=== PATIENT | male | born 1970 | race Native Hawaiian/Other Pacific Islander ===

== ENCOUNTER → 2022-12-12 | Outpatient (CLI) | payer BC ==
--- NOTE | 2022-12-12 08:21 | US ---
EXAMINATION TYPE: US liver DATE OF EXAM: 12/12/2022 COMPARISON: 09/25/2015 CLINICAL INDICATION: Male, 51 years old with history of R10.11; Pt states RUQ pain, especially post p randial TECHNIQUE: Multiple sonographic images of the right upper quadrant are obtained. FINDINGS: EXAM MEASUREMENTS: Liver Length: 16.8 cm Gallbladder Wall: 0.4 cm CBD: 0.4 cm Right Kidney: 11.3 x 5.4 x 5.9 cm Pancreas: Obscured by bowel gas Liver: Increased echogenicity. No far field attenuation. Gallbladder: Multiple gallstones at neck that don't move with LLD, sludge, mildly thickened wall. No pericholecystic fluid. Evidence for sonographic Elias's sign: Yes CBD: wnl Right Kidney: wnl IMPRESSION: 1. Moderate hepatic steatosis. Correlate with LFTs, lipid profile, and patient risk factors. 2. Mild gallbladder wall thickening with cholelithiasis and sludge. Sonographic Elias's sign is also reported positive. Unable to exclude early acute cholecystitis. If further imaging assessment is pipo ired, HIDA scan can be considered. 3. No biliary ductal dilatation.
== END | disposition home or self-care (01) ==
LOC: RADUSWWP 06:35
PROVIDERS: ATTEND Internal Medicine
DX: K76.0 Fatty (change of) liver, not elsewhere classified (principal); K80.20 Calculus of gallbladder without cholecystitis without obstruction
CPT/HCPCS: 76705

== ENCOUNTER 2023-03-15 11:46 | Inpatient (IN) | payer BC ==
--- NOTE | 2023-03-15 14:35 | ED ---
Abdominal Pain HPI - General Chief Complaint: Abdominal Pain Stated Complaint: Gallbladder Source: patient Mode of arrival: ambulatory Limitations: no limitations - History of Present Illness Initial Comments: A 52-year-old male with past medical history significant for gallbladder stones since the ED with chief complaint of abdominal pain. Patient states last night but experienced right upper abdominal pain. Pain is sharp and constant nature. Associated nausea and diarrhea. No changes in bowel or bladder habits. Denies chest pain or shortness of breath. No other complaints. - Related Data Previous Rx's Medication Instructions Recorded Famotidine [Pepcid] 20 mg PO BID #30 tablet 09/13/22 Allergies Allergy/AdvReac Type Severity Reaction Status Date / Time No Known Allergies Allergy Verified 03/15/23 11:57 Review of Systems ROS Statement: Those systems with pertinent positive or pertinent negative responses have been documented in the HPI. ROS Other: All systems not noted in ROS Statement are negative. Past Medical History Past Medical History: GERD/Reflux History of Any Multi-Drug Resistant Organisms: None Reported Past Surgical History: No Surgical Hx Reported Past Psychological History: No Psychological Hx Reported Smoking Status: Never smoker Past Alcohol Use History: Occasional Past Drug Use History: Marijuana General Exam Limitations: no limitations General appearance: alert, in no apparent distress Eye exam: Present: normal appearance Neck exam: Present: normal inspection Respiratory exam: Present: normal lung sounds bilaterally Cardiovascular Exam: Present: regular rate, normal rhythm GI/Abdominal exam: Present: soft (Tenderness to palpation in the right upper quadrant with positive Elias sign.) Extremities exam: Present: normal inspection Neurological exam: Present: alert, oriented X3 Skin exam: Present: warm, dry Course Vital Signs 03/15/23 11:55 Temperature 98.6 F Pulse Rate 60 Respiratory 18 Rate Blood Pressure 151/77 O2 Sat by Pulse 97 Oximetry Medical Decision Making - Medical Decision Making Was pt. sent in by a medical professional or institution (, PA, DIELECTRIC TESTING MACHINE OPERATOR, urgent care, hospital, or penitentiary...) When possible be specific @ -No Did you speak to anyone other than the patient for history (EMS, parent, family, police, friend...)? What history was obtained from this source @ -No Did you review nursing and triage notes (agree or disagree)? Why? @ -I reviewed and agree with nursing and triage notes Were old charts reviewed (outside hosp., previous admission, EMS record, old EKG, old radiological studies, urgent care reports/EKG's, penitentiary records)? Report findings @ -No old charts were reviewed Differential Diagnosis (chest pain, altered mental status, abdominal pain women, abdominal pain men, vaginal bleeding, weakness, fever, dyspnea, syncope, headache, dizziness, GI bleed, back pain, seizure, CVA, palpatations, mental health, musculoskeletal)? @ -Differential Abdominal Pain Men: Appendicitis, cholecystitis, diverticulosis, ischemic bowel, pancreatitis, hepatitis, UTI, gastroenteritis, AAA, incarcerated hernia, bowel obstruction, constipation, inflammatory bowel, hepatitis, peptic ulcer disease, splenic infarction, perforated viscus, testicular torsion, this is not meant to be an all-inclusive list EKG interpreted by me (3pts min.). @ -Pending X-rays interpreted by me (1pt min.). @ -None done CT interpreted by me (1pt min.). @ -None done U/S interpreted by me (1pt. min.). @ -Ultrasound interpreted by me shows cholelithiasis with gallbladder wall thickening. What testing was considered but not performed or refused? (CT, X-rays, U/S, labs)? Why? @ -None What meds were considered but not given or refused? Why? @ -None Did you discuss the management of the patient with other professionals (professionals i.e. , PA, DIELECTRIC TESTING MACHINE OPERATOR, lab, RT, psych nurse, sexual assault social worker, merchandise coordinator, teacher, public records officer, case managers)? Give summary @ -Discussed with Dr. Thacker of surgery accepted admission patient who advised sending the patient on Zosyn keeping him nothing by mouth. Was smoking cessation discussed for >3mins.? @ -No Was critical care preformed (if so, how long)? @ -No Were there social determinants of health that impacted care today? How? (Homelessness, low income, unemployed, alcoholism, drug addiction, transpor tation, low edu. Level, literacy, decrease access to med. care, longterm, rehab)? @ -No Was there de-escalation of care discussed even if they declined (Discuss DNR or withdrawal of care, Hospice)? DNR status @ -No What co-morbidities impacted this encounter? (DM, HTN, Smoking, COPD, CAD, Cancer, CVA, ARF, Chemo, Hep., AIDS, mental health diagnosis, sleep apnea, morbid obesity)? @ -None Was patient admitted / discharged? Hospital course, mention meds given and route, prescriptions, significant lab abnormalities, going to OR and other pertinent info. @ -Admission. Laboratory studies significant for an elevated white blood cell count at 16.2. Ultrasound shows cholelithiasis with gallbladder wall thickening consistent with cholecystitis. Patient will be admitted for continued pain control and kept nothing by mouth. Patient will be started on Zosyn. Undiagnosed new problem with uncertain prognosis? @ -No Drug Therapy requiring intensive monitoring for toxicity (Heparin, Nitro, Insulin, Cardizem)? @ -No Were any procedures done? @ -No Diagnosis/symptom? @ -Cholecystitis Acute, or Chronic, or Acute on Chronic? @ -Acute Uncomplicated (without systemic symptoms) or Complicated (systemic symptoms)? @ -Uncomplicated Side effects of treatment? @ -No Exacerbation, Progression, or Severe Exacerbation? @ -No Poses a threat to life or bodily function? How? (Chest pain, USA, CT, pneumonia, PE, COPD, DKA, ARF, appy, cholecystitis, CVA, Diverticulitis, Homicidal, Suicidal, threat to staff... and all critical care pts) @ -No - Lab Data Result diagrams: 03/15/23 15:45 03/15/23 15:45 Lab Results 03/15/23 03/15/23 Range/Units 15:45 15:45 WBC 16.2 H (3.8-10.6) k/uL RBC 5.42 (4.30-5.90) m/uL Hgb 16.5 (13.0-17.5) gm/dL Hct 47.4 (39.0-53.0) % MCV 87.3 (80.0-100.0) fL MCH 30.4 (25.0-35.0) pg MCHC 34.8 (31.0-37.0) g/dL RDW 13.8 (11.5-15.5) % Plt Count 218 (150-450) k/uL MPV 6.6 Neutrophils % 84 % Lymphocytes % 12 % Monocytes % 4 % Eosinophils % 0 % Basophils % 0 % Neutrophils # 13.5 H (1.3-7.7) k/uL Lymphocytes # 1.9 (1.0-4.8) k/uL Monocytes # 0.7 (0-1.0) k/uL Eosinophils # 0.1 (0-0.7) k/uL Basophils # 0.0 (0-0.2) k/uL Sodium 137 (137-145) mmol/L Potassium 4.3 (3.5-5.1) mmol/L Chloride 99 (98-107) mmol/L Carbon Dioxide 28 (22-30) mmol/L Anion Gap 10 mmol/L BUN 11 (9-20) mg/dL Creatinine 0.64 L (0.66-1.25) mg/dL Est GFR (CKD-EPI)AfAm >90 (>60 ml/min/1.73 sqM) Est GFR (CKD-EPI)NonAf >90 (>60 ml/min/1.73 sqM) Glucose 115 H (74-99) mg/dL Calcium 10.0 (8.4-10.2) mg/dL Total Bilirubin 1.6 H (0.2-1.3) mg/dL AST 32 (17-59) U/L ALT 42 (4-49) U/L Alkaline Phosphatase 84 (38-126) U/L Total Protein 8.2 (6.3-8.2) g/dL Albumin 4.9 (3.5-5.0) g/dL Amylase 52 (30-110) U/L Lipase 32 (23-300) U/L Disposition Clinical Impression: Cholecystitis Disposition: ADMITTED IP TO THIS [facility] Referrals: Hany Lindsay MD [Primary Care Provider] - 1-2 days Time of Disposition: 18:30
[2023-03-15 16:04] LABS: Basophils % (A) 0 %; Eosinophils # (A) 0.1 k/uL (0-0.7); Eosinophils % (A) 0 %; HCT 47.4 % (39.0-53.0); HGB 16.5 gm/dL (13.0-17.5); Lymphocytes # (A) 1.9 k/uL (1.0-4.8); Lymphocytes % (A) 12 %; MCH 30.4 pg (25.0-35.0); MCHC 34.8 g/dL (31.0-37.0); MCV 87.3 fL (80.0-100.0); Mean Platelet Volume 6.6; Monocytes # (A) 0.7 k/uL (0-1.0); Monocytes % (A) 4 %; Neutrophils # (A) 13.5 k/uL (1.3-7.7); Neutrophils % (A) 84 %; Platelet Count 218 k/uL (150-450); RBC 5.42 m/uL (4.30-5.90); RDW 13.8 % (11.5-15.5); WBC 16.2 k/uL (3.8-10.6)
[2023-03-15 16:08] LABS: ALT 42 U/L (4-49); AST 32 U/L (17-59); African American GFR (CKD) >90 (>60 ml/min/1.73 sqM); Albumin 4.9 g/dL (3.5-5.0); Alkaline Phosphatase 84 U/L (38-126); Amylase 52 U/L (30-110); Anion Gap 10 mmol/L; Blood Urea Nitrogen 11 mg/dL (9-20); Carbon Dioxide 28 mmol/L (22-30); Chloride 99 mmol/L (98-107); Glucose 115 mg/dL (74-99); Lipase 32 U/L (23-300); Non-African American GFR(CKD) >90 (>60 ml/min/1.73 sqM); Potassium 4.3 mmol/L (3.5-5.1); Sodium 137 mmol/L (137-145); Total Bilirubin 1.6 mg/dL (0.2-1.3); Total Protein 8.2 g/dL (6.3-8.2)
--- NOTE | 2023-03-15 16:53 | US ---
EXAMINATION TYPE: US gallbladder DATE OF EXAM: 03/15/2023 COMPARISON: 12/12/22 CLINICAL INDICATION: Male, 52 years old with history of r/o cholecystitis; RUQ pain. Pt diagnosed wit h gallstones in November 2022. Pt states multiple "GB attacks" since then. Increased WBC TECHNIQUE: Multiple sonographic images of the right upper quadrant are obtained. FINDINGS: EXAM MEASUREMENTS: Liver Length: 17.8 cm Gallbladder Wall: 0.36 cm CBD: 0.34cm Right Kidney: 13.2 x 7.5 x 7.0 cm BI LEAD NOTES: Pancreas: wnl Liver: Heterogeneous. Hypoechoic area seen adjacent to GB measuring 2.4 x 3.6cm, most likely fatty s paring Gallbladder: Multiple gallstones visualized. Some appeared attached to fundus wall and immobile. The wall appeared to be thickened. Evidence for sonographic Elias's sign: No CBD: wnl Right Kidney: wnl IMPRESSION: 1 Clinical correlation recommended for acute cholecystitis. Cholelithiasis is present. 2. Hepatomegaly
[2023-03-15] MEDS ORDERED: MORPHINE SULFATE 4 MG/ML SYRINGE IVP STA (18:32)
[2023-03-15] MEDS ORDERED: ACETAMINOPHEN TAB 325 MG TAB PO PRN (18:41)
[2023-03-15] MEDS ORDERED: NALOXONE 0.4 MG/ML 1 ML VIAL IV PRN (18:41)
[2023-03-15] MEDS ORDERED: HYDROmorphone 0.5 MG/0.5 ML SYRINGE IVP PRN (18:41)
[2023-03-15] MEDS: ONDANSETRON 4 MG/2 ML VIAL IVP PRN (20:13)
[2023-03-15] MEDS: SODIUM CHLORIDE 0.9% 1,000 ML IV SCH (20:14)
[2023-03-15] MEDS: PIPERACILLIN-TAZOBACTAM 3.375 GM in SODIUM CHLORIDE 0.9% 100 ML IVPB SCH (20:14)
[2023-03-15] MEDS: HYDROmorphone 1 MG/ML 1 ML SYRINGE IVP PRN (22:20)
[2023-03-16] MEDS: PIPERACILLIN-TAZOBACTAM 3.375 GM in SODIUM CHLORIDE 0.9% 100 ML IVPB SCH ×3 (03:10→22:01)
[2023-03-16] MEDS: HYDROmorphone 1 MG/ML 1 ML SYRINGE IVP PRN ×3 (03:17→15:47)
[2023-03-16] MEDS ORDERED: HEPARIN SODIUM,PORCINE/PF 5,000 UNIT/0.5 ML SYRINGE SQ PRN (10:06)
[2023-03-16] MEDS ORDERED: INDOCYANINE GREEN 25 MG VIAL IV STA (10:07)
[2023-03-16 11:29] LABS: Basophils % (A) 0 %; Eosinophils # (A) 0.1 k/uL (0-0.7); Eosinophils % (A) 1 %; HCT 47.8 % (39.0-53.0); HGB 15.6 gm/dL (13.0-17.5); Lymphocytes # (A) 2.1 k/uL (1.0-4.8); Lymphocytes % (A) 22 %; MCH 29.4 pg (25.0-35.0); MCHC 32.7 g/dL (31.0-37.0); MCV 89.9 fL (80.0-100.0); Mean Platelet Volume 6.6; Monocytes # (A) 0.5 k/uL (0-1.0); Monocytes % (A) 6 %; Neutrophils # (A) 6.8 k/uL (1.3-7.7); Neutrophils % (A) 70 %; Platelet Count 231 k/uL (150-450); RBC 5.31 m/uL (4.30-5.90); RDW 14.1 % (11.5-15.5); WBC 9.7 k/uL (3.8-10.6)
--- NOTE | 2023-03-16 11:34 | P.CONS ---
History of Present Illness - Reason for Consult Consult date: 03/16/23 - History of Present Illness Patient is a 52-year-old male with history of GERD, and back pain presenting with worsening right upper quadrant pain. He claims that he has been having intermittent right upper quadrant pain, and was scheduled to see surgery in clinic for possibly cholecystectomy. However, 2 days ago his pain became more persistent, and he was in [place] at that time. He did go to another emergency room, was not able to wait due to pain. He then decided to come home but continued to experience extreme pain, and then finally came back to our emergency department. He denies any fevers, chills, chest pain, shortness of breath, urinary or bowel complaints. He denies any smoking, drinks alcohol occasionally, denies any illicit drug use. In the ED, temperature was 98.6, pulse 60, respiratory rate 18, blood pressure 151/77, saturating at 97% on room air. Laboratory analysis showed WBC of 16.2, sodium 137, creatinine 0.64. Total bilirubin 1.6, LFTs within normal limits. Lipase was 32. Gallbladder ultrasound showed cholelithiasis with findings consistent with suspected acute cholecystitis. Also showed hepatomegaly. Patient admitted to general surgery. Sound physician has been consulted for medical management. Pertinent positives and negatives as discussed in HPI, a complete review of systems was performed and all other systems are negative. Patient seen and examined at bedside. Vital signs reviewed General: nontoxic, no distress, appears at stated age Derm: warm, dry Head: atraumatic, normocephalic, symmetric Eyes: EOMI, no lid lag, anicteric sclera, pupils equal round reactive to light ENT: Nose and ears atraumatic Neck: No thyromegaly, supple Mouth: no lip lesion, mucus membranes moist Cardiovascular: S1S2 reg, no murmur, no edema Lungs: clear to auscultation bilateral, no rhonchi, no rales, no wheeze, no accessory muscle use Abdominal: soft, tender to palpation in right upper quadrant, no guarding, no appreciable organomegaly Ext: no gross muscle atrophy, muscle strength muscle strength 5 out of 5 in all 4 extremities, no contractures Neuro: CN II-XII grossly intact Psych: Alert, oriented, appropriate affect Assessment/Plan: Acute cholecystitis Leukocytosis, resolved GERD Hepatomegaly -Agree with continuing Zosyn IV -Continue IV fluids at 75 mL an hour -On oral Tylenol as needed, and IV Dilaudid as needed for pain -Surgery following -Continue home PPI Thank you for allowing us to participate in the care of this pleasant patient. Do not hesitate to contact us with questions. Someone can be reached from the [facility] hospitalist group all hours of the day at [phone] or via [employer]. Past Medical History Past Medical History: GERD/Reflux History of Any Multi-Drug Resistant Organisms: None Reported Past Surgical History: No Surgical Hx Reported Past Psychological History: No Psychological Hx Reported Smoking Status: Never smoker Past Alcohol Use History: Occasional Past Drug Use History: Marijuana Medications and Allergies Home Medications Medication Instructions Recorded Confirmed Type Celecoxib [CeleBREX] 100 mg PO BID 03/15/23 03/15/23 History Esomeprazole Magnesium [NexIUM] 40 mg PO DAILY 03/15/23 03/15/23 History Oxycodone(Unknown Dose) 1 tab PO ONETIME 03/15/23 03/15/23 History Allergies Allergy/AdvReac Type Severity Reaction Status Date / Time No Known Allergies Allergy Verified 03/15/23 19:27 Physical Exam Vitals: Vital Signs Temp Pulse Pulse Resp BP BP Pulse Ox 03/16/23 07:00 98.1 F 57 L 20 114/79 99 03/16/23 03:14 98.0 F 57 L 15 123/67 97 03/15/23 22:05 97.7 F 61 15 158/82 98 03/15/23 21:23 99.1 F 03/15/23 21:00 99.0 F 87 16 142/78 03/15/23 20:30 145/87 03/15/23 20:00 145/101 97 03/15/23 19:50 99.2 F 57 L 16 145/101 100 03/15/23 11:55 98.6 F 60 18 151/77 97 Intake and Output 03/15/23 03/16/23 03/16/23 22:59 06:59 14:59 Other: # Voids 0 3 Weight 90.718 kg Results CBC & Chem 7: 03/16/23 10:54 03/15/23 15:45 Labs: Abnormal Lab Results - Last 24 Hours (Table) 03/15/23 03/15/23 Range/Units 15:45 15:45 WBC 16.2 H (3.8-10.6) k/uL Neutrophils # 13.5 H (1.3-7.7) k/uL Creatinine 0.64 L (0.66-1.25) mg/dL Glucose 115 H (74-99) mg/dL Total Bilirubin 1.6 H (0.2-1.3) mg/dL
[2023-03-16 11:41] LABS: ALT 40 U/L (4-49); AST 30 U/L (17-59); African American GFR (CKD) >90 (>60 ml/min/1.73 sqM); Albumin 4.2 g/dL (3.5-5.0); Albumin/Globulin Ratio 1.4; Alkaline Phosphatase 78 U/L (38-126); Anion Gap 10 mmol/L; Blood Urea Nitrogen 11 mg/dL (9-20); Calcium 9.3 mg/dL (8.4-10.2); Carbon Dioxide 27 mmol/L (22-30); Chloride 101 mmol/L (98-107); Globulin 2.9 g/dL; Glucose 98 mg/dL (74-99); Non-African American GFR(CKD) >90 (>60 ml/min/1.73 sqM); Sodium 138 mmol/L (137-145); Total Bilirubin 2.4 mg/dL (0.2-1.3); Total Protein 7.1 g/dL (6.3-8.2)
--- NOTE | 2023-03-16 13:13 | P.GSHP ---
History of Present Illness H&P Date: 03/16/23 CHIEF COMPLAINT: Abdominal pain HISTORY OF PRESENT ILLNESS: This is a 52-year-old male who started having right upper quadrant abdominal pain Monday evening. He was having nausea vomiting and chills sweats. He's been having a decreased appetite. He initially went to [facility] of he was in [place] on Monday however the wait time was extremely long. He left the hospital and came back to [place] his home state and presented to [facility]. Patient has a history of gallstones. No prior abdominal surgeries. Denies any cardiac history. Gallbladder ultrasound had shown evidence of acute cholecystitis and gallstones. He has been placed on antibiotics and is scheduled for surgery today. Patient does report improvement in pain with pain medication. PAST MEDICAL HISTORY: See list. PAST SURGICAL HISTORY: See list. MEDICATIONS: See list. ALLERGIES: See list. SOCIAL HISTORY: No illicit drug use. Occasional alcohol use. No smoking. REVIEW OF SYSTEMS: CONSTITUTIONAL: Denies fever or chills. HEENT: Denies blurred vision, vision changes, or eye pain. Denies hemoptysis ENDOCRINE: Denies heat or cold intolerance. CARDIOVASCULAR: Denies chest pain or pressure. RESPIRATORY: No shortness of breath. GASTROINTESTINAL: Please refer to HPI NEURO: Denies history of seizures. PSYCH: No depression or suicidal ideation HEMATOLOGIC: Denies bleeding disorders. LYMPHATIC: The patient denies any lumps and bumps around the neck. GENITOURINARY: Denies any blood in urine or increased urinary frequency. MUSCULOSKELETAL: Denies myalgias. Denies joint swelling. Denies decreased range of motion beyond patients baseline. SKIN: Denies pruitis. Denies rash. PHYSICAL EXAM: VITAL SIGNS: Reviewed GENERAL: Well-developed in no acute distress. HEENT: No sclera icterus. Extraocular movements grossly intact. Moist buccal mucosa. Head is atraumatic, normocephalic. Hears conversational speech. No nasal drainage. NECK: Supple without lymphadenopathy. CHEST: Non-labored respirations and equal bilateral excursions. CARDIOVASCULAR: Palpable 2+ radial pulses. ABDOMEN: Soft. Nondistended. Minimal Right upper quadrant tenderness. Patient just received pain medication MUSCULOSKELETAL: No clubbing or cyanosis. NEUROLOGIC: No focal or lateralizing signs. Cranial nerves II through XII grossly intact. PSYCH: Appropriate affect. Alert and oriented to person, place and time. SKIN: Well perfused. Good skin turgor. LABORATORY DATA: WBC 16.2 down to 9.7 Hgb 15.6 plt 231 Sodium 138 potassium 4.0 creatinine 0.79 Total bilirubin 2.4 AST 30 ALT 40 alk phos 70 IMAGING: Gallbladder ultrasound clinical correlation recommended for acute cholecystitis. Cholelithiasis is present. Hepatomegaly. ASSESSMENT: 1. Acute cholecystitis with cholelithiasis PLAN: -Patient scheduled for robotic cholecystectomy today with Dr. Lovell -Keep patient nothing by mouth. He may have 2 cups of juice this morning since surgery will be in the evening. -Continue antibiotics -Continue pain management -Continue antiemetics as needed Physician Progress Developer note has been reviewed by physician. Signing provider agrees with the documented findings, assessment, and plan of care. Past Medical History Past Medical History: GERD/Reflux History of Any Multi-Drug Resistant Organisms: None Reported Past Surgical History: No Surgical Hx Reported Past Psychological History: No Psychological Hx Reported Smoking Status: Never smoker Past Alcohol Use History: Occasional Past Drug Use History: Marijuana Medications and Allergies Home Medications Medication Instructions Recorded Confirmed Type Celecoxib [CeleBREX] 100 mg PO BID 03/15/23 03/15/23 History Esomeprazole Magnesium [NexIUM] 40 mg PO DAILY 03/15/23 03/15/23 History Oxycodone(Unknown Dose) 1 tab PO ONETIME 03/15/23 03/15/23 History Allergies Allergy/AdvReac Type Severity Reaction Status Date / Time No Known Allergies Allergy Verified 03/15/23 19:27 Surgical - Exam Vital Signs Temp Pulse Resp BP Pulse Ox 98.6 F 60 18 151/77 97 03/15/23 11:55 03/15/23 11:55 03/15/23 11:55 03/15/23 11:55 03/15/23 11:55 Results - Labs 03/16/23 10:54 03/16/23 10:54 Abnormal Lab Results - Last 24 Hours (Table) 03/15/23 03/15/23 03/16/23 Range/Units 15:45 15:45 10:54 WBC 16.2 H (3.8-10.6) k/uL Neutrophils # 13.5 H (1.3-7.7) k/uL Creatinine 0.64 L (0.66-1.25) mg/dL Glucose 115 H (74-99) mg/dL Total Bilirubin 1.6 H 2.4 H (0.2-1.3) mg/dL Diabetes panel 03/15/23 03/16/23 Range/Units 15:45 10:54 Sodium 137 138 (137-145) mmol/L Potassium 4.3 4.0 (3.5-5.1) mmol/L Chloride 99 101 (98-107) mmol/L Carbon Dioxide 28 27 (22-30) mmol/L BUN 11 11 (9-20) mg/dL Creatinine 0.64 L 0.79 (0.66-1.25) mg/dL Glucose 115 H 98 (74-99) mg/dL Calcium 10.0 9.3 (8.4-10.2) mg/dL AST 32 30 (17-59) U/L ALT 42 40 (4-49) U/L Alkaline Phosphatase 84 78 (38-126) U/L Total Protein 8.2 7.1 (6.3-8.2) g/dL Albumin 4.9 4.2 (3.5-5.0) g/dL Calcium panel 03/15/23 03/16/23 Range/Units 15:45 10:54 Calcium 10.0 9.3 (8.4-10.2) mg/dL Albumin 4.9 4.2 (3.5-5.0) g/dL Pituitary panel 03/15/23 03/16/23 Range/Units 15:45 10:54 Sodium 137 138 (137-145) mmol/L Potassium 4.3 4.0 (3.5-5.1) mmol/L Chloride 99 101 (98-107) mmol/L Carbon Dioxide 28 27 (22-30) mmol/L BUN 11 11 (9-20) mg/dL Creatinine 0.64 L 0.79 (0.66-1.25) mg/dL Glucose 115 H 98 (74-99) mg/dL Calcium 10.0 9.3 (8.4-10.2) mg/dL Adrenal panel 03/15/23 03/16/23 Range/Units 15:45 10:54 Sodium 137 138 (137-145) mmol/L Potassium 4.3 4.0 (3.5-5.1) mmol/L Chloride 99 101 (98-107) mmol/L Carbon Dioxide 28 27 (22-30) mmol/L BUN 11 11 (9-20) mg/dL Creatinine 0.64 L 0.79 (0.66-1.25) mg/dL Glucose 115 H 98 (74-99) mg/dL Calcium 10.0 9.3 (8.4-10.2) mg/dL Total Bilirubin 1.6 H 2.4 H (0.2-1.3) mg/dL AST 32 30 (17-59) U/L ALT 42 40 (4-49) U/L Alkaline Phosphatase 84 78 (38-126) U/L Total Protein 8.2 7.1 (6.3-8.2) g/dL Albumin 4.9 4.2 (3.5-5.0) g/dL
[2023-03-16] MEDS ORDERED: LACTATED RINGERS 1,000 ML IV ONE (16:57)
[2023-03-16] MEDS: ONDANSETRON 4 MG/2 ML VIAL IVP PRN (16:58)
[2023-03-16] MEDS ORDERED: MIDAZOLAM 2 MG/2 ML VIAL IVP ONE (17:27)
[2023-03-16] MEDS ORDERED: LIDOCAINE 1%-EPI 1:100,000 50 ML VIAL SQ ONE ×2 (17:38→18:06)
[2023-03-16] MEDS ORDERED: fentaNYL (PF) 50 MCG/ML 2 ML AMP ONE (17:40)
[2023-03-16] MEDS ORDERED: ePHEDrine 50 MG/ML 1 ML VIAL ONE (17:40)
[2023-03-16] MEDS ORDERED: ONDANSETRON 4 MG/2 ML VIAL ONE (17:40)
[2023-03-16] MEDS ORDERED: DEXAMETHASONE SOD PHOSPHATE 4 MG/ML 1 ML VIAL ONE (17:40)
[2023-03-16] MEDS ORDERED: PROPOFOL 10 MG/ML 20 ML VIAL IV ONE (17:40)
[2023-03-16] MEDS ORDERED: ROCURONIUM 10 MG/ML (5 ML VIAL) IV ONE (17:40)
[2023-03-16] MEDS ORDERED: HYDROmorphone (PF) 1 MG/ML ONE (17:40)
[2023-03-16] MEDS ORDERED: SUCCINYLCHOLINE CHLORIDE 200 MG/10 ML VIAL IV ONE (17:40)
[2023-03-16] MEDS ORDERED: LIDOCAINE 2% INJ 20 MG/ML (2 ML VIAL) ONE (17:40)
[2023-03-16] MEDS ORDERED: NEOSTIGMINE 1 MG/ML 10 ML VIAL ONE (17:40)
[2023-03-16] MEDS ORDERED: GLYCOPYRROLATE 0.2 MG/ML 2 ML VIAL ONE (17:40)
[2023-03-16] MEDS ORDERED: HYDROmorphone 0.5 MG/0.5 ML SYRINGE IVP ONE (20:08)
[2023-03-16] MEDS ORDERED: droPERidol 5 MG/2 ML VIAL IVP ONE (20:13)
[2023-03-16] MEDS: SODIUM CHLORIDE 0.9% 1,000 ML IV SCH ×2 (21:12→22:29)
[2023-03-17] MEDS: PIPERACILLIN-TAZOBACTAM 3.375 GM in SODIUM CHLORIDE 0.9% 100 ML IVPB SCH ×2 (04:16→12:34)
[2023-03-17] MEDS ORDERED: ACETAMINOPHEN IV (For NPO) 1,000 MG in EMPTY BAG 1 BAG IVPB ONE (06:55)
[2023-03-17] MEDS ORDERED: SODIUM CHLORIDE 0.9% 2,000 ML IV ONE (06:58)
--- NOTE | 2023-03-17 07:02 | P.HPADDEND ---
H&P Addendum H&P Addendum Date: 03/16/23 Benefits and risks of robotic cholecystectomy described. Patient reports over 3 days history of right upper quadrant abdominal pain. He is elevated risk of complications.
[2023-03-17 08:15] LABS: Basophils % (A) 0 %; Eosinophils % (A) 0 %; HCT 43.2 % (39.0-53.0); HGB 14.6 gm/dL (13.0-17.5); Lymphocytes # (A) 0.9 k/uL (1.0-4.8); Lymphocytes % (A) 8 %; MCH 30.3 pg (25.0-35.0); MCHC 33.8 g/dL (31.0-37.0); MCV 89.7 fL (80.0-100.0); Mean Platelet Volume 6.7; Monocytes # (A) 0.6 k/uL (0-1.0); Monocytes % (A) 5 %; Neutrophils # (A) 9.8 k/uL (1.3-7.7); Neutrophils % (A) 86 %; Platelet Count 209 k/uL (150-450); RBC 4.82 m/uL (4.30-5.90); RDW 13.9 % (11.5-15.5); WBC 11.4 k/uL (3.8-10.6)
[2023-03-17] MEDS: SIMETHICONE 80 MG CHEWABLE PO SCH ×2 (08:28→16:51)
[2023-03-17 08:56] LABS: ALT 61 U/L (4-49); AST 65 U/L (17-59); African American GFR (CKD) >90 (>60 ml/min/1.73 sqM); Albumin 3.8 g/dL (3.5-5.0); Albumin/Globulin Ratio 1.5; Alkaline Phosphatase 74 U/L (38-126); Anion Gap 6 mmol/L; Blood Urea Nitrogen 14 mg/dL (9-20); Calcium 8.9 mg/dL (8.4-10.2); Carbon Dioxide 28 mmol/L (22-30); Chloride 101 mmol/L (98-107); Globulin 2.6 g/dL; Glucose 107 mg/dL (74-99); Non-African American GFR(CKD) >90 (>60 ml/min/1.73 sqM); Potassium 4.4 mmol/L (3.5-5.1); Sodium 135 mmol/L (137-145); Total Bilirubin 2.1 mg/dL (0.2-1.3); Total Protein 6.4 g/dL (6.3-8.2)
[2023-03-17] MEDS ORDERED: PANTOPRAZOLE 40 MG TABLET PO SCH (09:00)
[2023-03-17] MEDS ORDERED: HEPARIN SODIUM,PORCINE 5,000 UNIT/ML 1 ML VIAL SQ SCH (09:00)
[2023-03-17] MEDS: KETOROLAC 15 MG/ML 1 ML VIAL IVP SCH ×2 (10:35→16:50)
[2023-03-17 13:44] LABS: Basophils % (A) 0 %; Eosinophils % (A) 0 %; HCT 41.5 % (39.0-53.0); HGB 14.1 gm/dL (13.0-17.5); Lymphocytes # (A) 1.5 k/uL (1.0-4.8); Lymphocytes % (A) 12 %; MCH 30.1 pg (25.0-35.0); MCHC 33.9 g/dL (31.0-37.0); MCV 88.9 fL (80.0-100.0); Mean Platelet Volume 6.7; Monocytes # (A) 0.7 k/uL (0-1.0); Monocytes % (A) 6 %; Neutrophils # (A) 9.8 k/uL (1.3-7.7); Neutrophils % (A) 81 %; Platelet Count 219 k/uL (150-450); RBC 4.67 m/uL (4.30-5.90); WBC 12.2 k/uL (3.8-10.6)
--- NOTE | 2023-03-17 14:09 | P.PN ---
Subjective Progress Note Date: 03/17/23 Subjective: Patient seen and examined at bedside. No acute events overnight. Abdominal pain improved. Pertinent positives and negatives as discussed above, a complete review of elizabeth payton was performed and all other systems are negative. Vitals Signs Reviewed. General: nontoxic, no distress, appears at stated age Derm: warm, dry, incision sites clean, dry, intact Head: atraumatic, normocephalic, symmetric Eyes: EOMI, no lid lag, anicteric sclera Mouth: no lip lesion, mucus membranes moist Cardiovascular: S1S2 reg, no murmur Lungs: CTA bilateral, no rhonchi, no rales , no accessory muscle use Abdominal: soft, nontender to palpation, no guarding, no appreciable organomegaly Ext: no gross muscle atrophy, no edema, no contractures Neuro: CN II-XI grossly intact, no focal neuro deficits Psych: Alert, oriented, appropriate affect Data Reviewed Today: Pertinent Labs: WBC 12.2, hemoglobin 14, potassium 4.4, creatinine 0.87, mildly elevated LFTs Imaging: No new imaging Assessment and Plan: Acute cholecystitis status post cholecystectomy Leukocytosis, reactive Transaminitis, expected after surgical procedure GERD Hepatomegaly -Agree with continuing Zosyn IV -Continue IV fluids at 75 mL an hour -On oral Tylenol as needed, and IV Dilaudid as needed for pain, IV Toradol scheduled -Progressive care per surgery -Continue home PPI Thank you for allowing us to participate in the care of this pleasant patient. Do not hesitate to contact us with questions. Someone can be reached from the [facility] hospitalist group all hours of the day at [phone] or via [employer]. Objective - Vital Signs Vital signs: Vital Signs Temp 98.6 F 03/17/23 08:00 Pulse 60 03/17/23 08:00 Resp 18 03/17/23 08:00 BP 104/67 03/17/23 08:00 Pulse Ox 96 03/17/23 08:00 FiO2 Intake & Output 03/16/23 03/17/23 03/17/23 18:59 06:59 18:59 Intake Total 750 Output Total 50 Balance 750 -50 Weight 90.718 kg 90.718 kg Intake: IV 750 Output: Estimated Blood Loss 50 Other: # Voids 4 1 - Labs CBC & Chem 7: 03/17/23 12:36 03/17/23 07:49 Labs: Abnormal Lab Results - Last 24 Hours (Table) 03/17/23 03/17/23 03/17/23 Range/Units 07:49 07:49 12:36 WBC 11.4 H 12.2 H (3.8-10.6) k/uL Neutrophils # 9.8 H 9.8 H (1.3-7.7) k/uL Lymphocytes # 0.9 L (1.0-4.8) k/uL Sodium 135 L (137-145) mmol/L Glucose 107 H (74-99) mg/dL Total Bilirubin 2.1 H (0.2-1.3) mg/dL AST 65 H (17-59) U/L ALT 61 H (4-49) U/L
[2023-03-17 14:40] LABS: ALT 62 U/L (4-49); AST 65 U/L (17-59); African American GFR (CKD) >90 (>60 ml/min/1.73 sqM); Albumin 3.6 g/dL (3.5-5.0); Albumin/Globulin Ratio 1.3; Alkaline Phosphatase 83 U/L (38-126); Anion Gap 7 mmol/L; Bilirubin,Unconjugated 1.8 mg/dL (0.0-1.1); Blood Urea Nitrogen 14 mg/dL (9-20); Carbon Dioxide 26 mmol/L (22-30); Chloride 101 mmol/L (98-107); Globulin 2.7 g/dL; Glucose 108 mg/dL (74-99); Non-African American GFR(CKD) >90 (>60 ml/min/1.73 sqM); Potassium 4.4 mmol/L (3.5-5.1); Sodium 134 mmol/L (137-145); Total Bilirubin 2.1 mg/dL (0.2-1.3); Total Protein 6.3 g/dL (6.3-8.2)
--- NOTE | 2023-03-17 15:58 | P.PN ---
Subjective Progress Note Date: 03/17/23 CHIEF COMPLAINT: Cholecystitis HISTORY OF PRESENT ILLNESS: Patient postop day #1 status post Robotic lapa roscopic cholecystectomy. Patient reports his pain is controlled. He is tolerating diet. Afebrile. WBC is up from 11.4-12.2 total bilirubin staying the same at 2.1 unconjugated bilirubin is 1.8 AST 65 ALT 62 PHYSICAL EXAM: VITAL SIGNS: Reviewed GENERAL: Well-developed in no acute distress. HEENT: No sclera icterus. Extraocular movements grossly intact. Moist buccal mucosa. Head is atraumatic, normocephalic. Hears conversational speech. No nasal drainage. NECK: Supple without lymphadenopathy. CHEST: Non-labored respirations and equal bilateral excursions. CARDIOVASCULAR: Palpable 2+ radial pulses. ABDOMEN: Soft. Nondistended. Incision sites clean dry and intact MUSCULOSKELETAL: No clubbing or cyanosis. NEUROLOGIC: No focal or lateralizing signs. Cranial nerves II through XII grossly intact. PSYCH: Appropriate affect. Alert and oriented to person, place and time. SKIN: Well perfused. Good skin turgor. ASSESSMENT: 1. Acute cholecystitis with cholelithiasis 2. Mildly elevated bilirubin and LFTs PLAN: -Continue IV antibiotics -Continue low-fat diet -Repeat LFTs in a.m. -Encourage patient to ambulate -Continue pain management Physician Compensation And Benefits Analyst note has been reviewed by physician. Signing provider agrees with the documented findings, assessment, and plan of care. Objective - Vital Signs Vital signs: Vital Signs Temp 98.6 F 03/17/23 08:00 Pulse 60 03/17/23 08:00 Resp 18 03/17/23 08:00 BP 104/67 03/17/23 08:00 Pulse Ox 96 03/17/23 08:00 FiO2 Intake & Output 03/16/23 03/17/23 03/17/23 18:59 06:59 18:59 Intake Total 750 Output Total 50 Balance 750 -50 Weight 90.718 kg 90.718 kg Intake: IV 750 Output: Estimated Blood Loss 50 Other: # Voids 4 1 - Labs CBC & Chem 7: 03/17/23 12:36 03/17/23 11:18 Labs: Abnormal Lab Results - Last 24 Hours (Table) 03/17/23 03/17/23 03/17/23 Range/Units 07:49 07:49 11:18 WBC 11.4 H (3.8-10.6) k/uL Neutrophils # 9.8 H (1.3-7.7) k/uL Lymphocytes # 0.9 L (1.0-4.8) k/uL Sodium 135 L 134 L (137-145) mmol/L Glucose 107 H 108 H (74-99) mg/dL Total Bilirubin 2.1 H 2.1 H (0.2-1.3) mg/dL Unconjugated Bilirubin 1.8 H (0.0-1.1) mg/dL AST 65 H 65 H (17-59) U/L ALT 61 H 62 H (4-49) U/L 03/17/23 Range/Units 12:36 WBC 12.2 H (3.8-10.6) k/uL Neutrophils # 9.8 H (1.3-7.7) k/uL Lymphocytes # (1.0-4.8) k/uL Sodium (137-145) mmol/L Glucose (74-99) mg/dL Total Bilirubin (0.2-1.3) mg/dL Unconjugated Bilirubin (0.0-1.1) mg/dL AST (17-59) U/L ALT (4-49) U/L
[2023-03-17 16:47] VITALS: BP 104/62; PULSE 74; RESP 20; TEMP 98.7
--- NOTE | 2023-03-17 17:37 | P.DS ---
Providers Date of admission: 03/15/23 18:28 Expected date of discharge: 03/17/23 Attending physician: Michelle Lovell Consults: 03/15/23 18:41 Consult Physician Urgent Consulting Provider: Analilia Wynne Consult Reason/Comments: Cholecystitis Do you want consulting provider notified?: Yes 03/16/23 10:06 Consult Physician Routine Consulting Provider: [facility] Consult Reason/Comments: [facility] Do you want consulting provider notified?: Yes Primary care physician: Hany Lindsay MD Plan - Discharge Summary New Discharge Prescriptions: New Simethicone [Gas-X] 125 mg PO AC-TID PRN #20 capsule PRN Reason: Pain Acetaminophen Tab [Tylenol Tab] 1,000 mg PO Q6HR PRN #30 tablet PRN Reason: Pain Continue Esomeprazole Magnesium [NexIUM] 40 mg PO DAILY Celecoxib [CeleBREX] 100 mg PO BID Oxycodone(Unknown Dose) 1 tab PO ONETIME Discharge Medication List Celecoxib [CeleBREX] 100 mg PO BID 03/15/23 [History] Esomeprazole Magnesium [NexIUM] 40 mg PO DAILY 03/15/23 [History] Oxycodone(Unknown Dose) 1 tab PO ONETIME 03/15/23 [History] Acetaminophen Tab [Tylenol Tab] 1,000 mg PO Q6HR PRN #30 tablet 03/17/23 [Rx] Simethicone [Gas-X] 125 mg PO AC-TID PRN #20 capsule 03/17/23 [Rx] Follow up Appointment(s)/Referral(s): Hany Lindsay MD [Primary Care Provider] - 1-2 days Patient Instructions/Handouts: Low Fat Diet (DC), *Surgery [facility] - Laparoscopic Cholecystectomy Discharge Instructions Activity/Diet/Wound Care/Special Instructions: TELEHEALTH - DR WILL CALL YOU BETWEEN 8 am to 8 pm NO RETURN TO WORK UNTIL APR 03 Recommend low-fat diet for the next 2 days. No lifting over 10 pounds in 2 weeks until Mar 31November shower. No bath tub soaks for two weeks until Mar 31 Diet as tolerated. Use Tylenol, simethicone and ibuprofen or Aleve scheduled for the next 24-48 hours for best pain relief. Use ice along incisions for today to prevent swelling. Discharge Disposition: HOME SELF-CARE
[2023-03-17] MEDS: SODIUM CHLORIDE 0.9% 1,000 ML IV SCH (18:08)
--- NOTE | 2023-04-05 20:37 | P.OP ---
Date of Procedure: 03/16/23 Description of Procedure: SURGEON: TRISHA GARCIA MD PREOPERATIVE DIAGNOSES: 1. Acute cholecystitis with sepsis 2. Symptomatic gallstones 3. Hyperbilirubinemia 4. Gastroesophageal reflux disease 5. Osteoarthritis POSTOPERATIVE DIAGNOSES: 1. Acute hemorrhagic gangrenous cholecystitis with cystic duct obstruction due to gallstones 2. Symptomatic gallstones 3. Hyperbilirubinemia 4. Gastroesophageal reflux disease 5. Osteoarthritis Right upper quadrant peritoneal adhesions OPERATION: 1. Robotic-assisted da Telma Xi laparoscopic lysis of adhesions over 1 hour 2. Robotic-assisted da Telma Xi laparoscopic cholecystectomy, multiport with FIREFLY ESTIMATED BLOOD LOSS: 50 mL. SPECIMENS REMOVED: Gallbladder. COMPLICATIONS: None. OPERATIVE FINDINGS: 1. Acute gangrenous cholecystitis with hydrops and distended gallbladder 2. Indocyanine green confirms acute cholecystitis with lack of contrast in gallbladder 3. Common bile duct within normal limits, without dilation INDICATIONS: The patient is a 52 year-old male who presents with epigastric right upper quadrant pain, symptomatic gallstones, WBC over 16,000, and clinical features of acute cholecystitis. Antibiotic management including pain management was prescribed to managecholecystitis. Surgical intervention with cholecystectomy was described. Robotic assisted laparoscopic approach was described. Benefits and risks of the procedure including but not limited to bleeding, infection, injury to the biliary tree was reviewed. Informed consent was obtained. DESCRIPTION OF PROCEDURE: Patient was brought to the operating room, placed in supine position. After general induction, the abdomen had been prepped and draped in standard sterile fashion. The robotic da Telma XI system was primed. After a timeout protocol was performed, the patient had been prepped and draped in standard sterile fashion. The patient was injected with indocyanine green. A 5 mm 0 degrees laparoscopic trocar entry was performed along the left upper quadrant. The abdomen insufflated to 15 mmHg pressure which was tolerated well. Diagnostic laparoscopy demonstrated no injury to bowel viscera or mesentery. The liver surface was unremarkable. A moderately distended gallbladder was identified adding complexity to the case. Next, two 8 mm robotic ports were placed along the right upper abdomen. The camera 8-mm port was maintained along the epigastrium. Another 8 mm port was placed along the left upper abdominal wall after exchanging the 5 mm port. Please note that the ports were placed at least 10 to 15 cm away from the target anatomy of the gallbladder. The robot was docked along the left lateral abdomen. The patient was repositioned in reverse Trendelenburg position at 21 with the right side up 7. Using a grasper for arm 3, a grasper for arm 4, including hook cautery for arm 1, the robotic system was docked and primed as described. Instruments were interchanged by the photographer's assistant including hook cautery, Bovie cautery and clip appliers. Additional instruments including vessel sealer, robotic suction patternmaker bench, robotic stapler were made available. I had sat at the console. The gallbladder was encased in surrounding tissue including the omentum adding complexity to the case and requiring extensive lysis of adhesions using blunt and sharp dissection using vessel sealer including hook artery for over one hour. The gallbladder was reflected towards the dome of the liver. The gallbladder was moderately distended adding complexity to the case. Edema was found along the cystic triangle including infundibulum. Initial dissection was performed on the gallbladder infundibulum using indocyanine green to illuminate the cystic duct and common bile duct. Due to moderate distention of the infundibulum, dome down technique was performed removing the gallbladder from the hepatic fossa starting from the fundus towards the infundibulum. Using a sponge, the liver was reflected towards the diaphragm and starting at the gallbladder fundus, hook cautery was used between the liver and the gallbladder. As the gallbladder was dissected from the hepatic fossa, hemostasis was checked using vessel sealer along the posterior gallbladder. Next, indocyanine green was used to confirm the common bile duct as well as cystic duct. The entire gallbladder was without contrast consistent with acute cholecystitis. The infundibulum was retracted laterally away from the common bile duct. The left upper quadrant trocar was exchanged for a 12 mm robotic trocar. FIREFLY was used to identify the common bile duct. Robotic 45 mm green staple loads were fired across the infundibulum as the cystic duct and cystic structures were moderately edematous. Additionally, gallstone was impacted along the neck of the gallbladder. Indocyanine green was used to confirm no bile leak from the staple line. Sponges were removed from the abdomen. The robot was undocked. I re-scrubbed into the case. A 10 mm Endo Catch bag was used to remove the gallbladder in total via the left upper quadrant incision after widening the incision. The specimen was removed from the abdominal cavity. Enrique Salcido and 0 Vicryl was used to close the fascial defect of the left upper quadrant. All pneumoperitoneum instruments were evacuated from the abdominal cavity. The incisions were cleansed using dilute hydrogen peroxide. The incisions were reapproximated using 4-0 Monocryl in an interrupted subcuticular fashion. Please note along the trocar sites, local anesthetic was placed as a field block prior to insertion of all instruments. Liquid glue was applied to the skin. At the end of the procedure needle, sponge, and instrument count had been verified correct by the ophthalmic surgical assistant. The patient was transferred to postanesthesia care unit in stable condition. Intraoperative films were shared with the patient's family who were pleased with the level of care.
== END 2023-03-17 19:36 | disposition home or self-care (01) | DRG 419 ==
LOC: EC 11:46 → 6NMEDSUR 18:28
PROVIDERS: ADMIT Surgery Plastic and Reconstructive Surgery; ATTEND Surgery Plastic and Reconstructive Surgery
PROC: 8E0W4CZ Robotic Assisted Procedure of Trunk Region, Percutaneous Endoscopic Approach (ICD-10-PCS; 2023-03-16)
PROC: 0DNW4ZZ Release Peritoneum, Percutaneous Endoscopic Approach (ICD-10-PCS; principal; 2023-03-16 18:20)
PROC: 0FT44ZZ Resection of Gallbladder, Percutaneous Endoscopic Approach (ICD-10-PCS; principal; 2023-03-16 18:20)
PROC: BF53200 Other Imaging of Gallbladder and Bile Ducts using Fluorescing Agent, Indocyanine Green Dye, Intraoperative (ICD-10-PCS; principal; 2023-03-16 18:20)
DX: K80.01 Calculus of gallbladder with acute cholecystitis with obstruction (principal); K21.9 Gastro-esophageal reflux disease without esophagitis; R16.0 Hepatomegaly, not elsewhere classified; Z79.1 Long term (current) use of non-steroidal anti-inflammatories (NSAID); Z79.899 Other long term (current) drug therapy; K66.0 Peritoneal adhesions (postprocedural) (postinfection)
CPT/HCPCS: 36415; 76705; 80053; 82150; 82248; 83690; 85025; 88304; 93005; 96365; 96375; 99285

== ENCOUNTER 2023-03-31 12:02 | Emergency (ER) | payer BC ==
[2023-03-31 12:16] VITALS: TEMP 98.3
--- NOTE | 2023-03-31 12:29 | ED ---
General Adult HPI - General Chief complaint: Abdominal Pain Stated complaint: post [id number] Time Seen by Provider: 03/31/23 12:15 Source: patient, RN notes reviewed, old records reviewed Mode of arrival: ambulatory Limitations: no limitations - History of Present Illness Initial comments: This is a 52-year-old male who presents emergency Department 3 weeks postop for cholecystectomy. Patient states over the last 3-4 days he started having some left-sided abdominal pain between the 2 incision sites on the left. Patient denies any nausea vomiting patient denies any diarrhea. Patient denies any fever chills per patient states the pain is gotten a little bit worse over the last few days. Patient states also he has an occasional sharp pain up in the left upper quadrant that only lasts a second or 2 and goes away. Patient denies any chest pain difficulty breathing shortness breath per patient denies any drainage. Patient is in ears or redness. - Related Data Home Medications Medication Instructions Recorded Confirmed Celecoxib [CeleBREX] 100 mg PO BID 03/15/23 03/31/23 Esomeprazole Magnesium [NexIUM] 40 mg PO DAILY 03/15/23 03/31/23 Previous Rx's Medication Instructions Recorded Acetaminophen Tab [Tylenol Tab] 1,000 mg PO Q6HR PRN #30 tablet 03/17/23 Simethicone [Gas-X] 125 mg PO AC-TID PRN #20 capsule 03/17/23 Allergies Allergy/AdvReac Type Severity Reaction Status Date / Time No Known Allergies Allergy Verified 03/31/23 15:06 Review of Systems ROS Statement: Those systems with pertinent positive or pertinent negative responses have been documented in the HPI. ROS Other: All systems not noted in ROS Statement are negative. Past Medical History Past Medical History: GERD/Reflux History of Any Multi-Drug Resistant Organisms: None Reported Past Surgical History: Cholecystectomy Past Psychological History: No Psychological Hx Reported Smoking Status: Never smoker Past Alcohol Use History: Occasional Past Drug Use History: Marijuana General Exam - General Exam Comments Initial Comments: GENERAL: Patient is well-developed and well-nourished. Patient is nontoxic and well-h ydrated and is in no acute distress. ENT: Neck is soft and supple. No significant lymphadenopathy is noted. Oropharynx is clear. Moist mucous membranes. Neck has full range of motion without elic iting any pain. There is no thyroid enlargement and no masses were felt. EYES: The sclera were anicteric and conjunctiva were pink and moist. Extraocular movements were intact and pupils were equal round and reactive to light. Eyelids were unremarkable. PULMONARY: Unlabored respirations. Good breath sounds bilaterally. No audible rales rhonchi or wheezing was noted. CARDIOVASCULAR: There is a regular rate and rhythm without any murmurs gallops or rubs. Femoral pulses are equal bilaterally ABDOMEN: Incision sites do not look erythematous there is some tenderness between the middle incision and the left-sided incision. No masses are noted SKIN: Skin is clear with no lesions or rashes and otherwise unremarkable. NEUROLOGIC: Patient is alert and oriented x3. Cranial nerves II through XII are grossly intact. Motor and sensory are also intact. Normal speech, volume and content. Symmetrical smile. Cerebellar exam grossly intact. MUSCULOSKELETAL: Normal extremities with adequate strength and full range of motion. LYMPHATICS: No significant lymphadenopathy is noted PSYCHIATRIC: Normal psychiatric evaluation. Limitations: no limitations Course Vital Signs 03/31/23 12:12 Temperature 98.3 F Pulse Rate 60 Respiratory 20 Rate Blood Pressure 144/102 O2 Sat by Pulse 99 Oximetry Medical Decision Making - Medical Decision Making Was pt. sent in by a medical professional or institution (, PA, FAMILY LIVING EDUCATOR, urgent c are, hospital, or [facility]...) When possible be specific @ -No Did you speak to anyone other than the patient for history (EMS, parent, family, police, friend...)? What history was obtained from this source @ -No Did you review nursing and triage notes (agree or disagree)? Why? @ -I reviewed and agree with nursing and triage notes Were old charts reviewed (outside hosp., previous admission, EMS record, old EKG, old radiological studies, urgent care reports/EKG's, [facility] records)? Report findings @ -I reviewed prior labs and prior charts on this patient Differential Diagnosis (chest pain, altered mental status, abdominal pain women, abdominal pain men, vaginal bleeding, weakness, fever, dyspnea, syncope, headache, dizziness, GI bleed, back pain, seizure, CVA, palpatations, mental health, musculoskeletal)? @ -Differential Abdominal Pain Men: Appendicitis, cholecystitis, diverticulosis, ischemic bowel, pancreatitis, hepatitis, UTI, gastroenteritis, AAA, incarcerated hernia, bowel obstruction, constipation, inflammatory bowel, hepatitis, peptic ulcer disease, splenic infarction, perforated viscus, testicular torsion, this is not meant to be an all-inclusive list EKG interpreted by me (3pts min.). @ -As above X-rays interpreted by me (1pt min.). @ -None done CT interpreted by me (1pt min.). @ -CT of the abdomen and pelvis showed a little area in the region of the gallbladder had some stranding of fat which was consistent with postsurgical changes. U/S interpreted by me (1pt. min.). @ -None done What testing was considered but not performed or refused? (CT, X-rays, U/S, labs)? Why? @ -None What meds were considered but not given or refused? Why? @ -None Did you discuss the management of the patient with other professionals (professionals i.e. , PA, FAMILY LIVING EDUCATOR, lab, RT, psych nurse, psychiatric social worker supervisor, business development consultant, teacher, fire management officer, pillowcase turner)? Give summary @ -I spoke with Dr. Dang about this case Was smoking cessation discussed for >3mins.? @ -No Was critical care preformed (if so, how long)? @ -No Were there social determinants of health that impacted care today? How? (Homelessness, low income, unemployed, alcoholism, drug addiction, transportation, low edu. Level, literacy, decrease access to med. care, group home, rehab)? @ -No Was there de-escalation of care discussed even if they declined (Discuss DNR or withdrawal of care, Hospice)? DNR status @ -No What co-morbidities impacted this encounter? (DM, HTN, Smoking, COPD, CAD, Cancer, CVA, ARF, Chemo, Hep., AIDS, mental health diagnosis, sleep apnea, morbid obesity)? @ -None Was patient admitted / discharged? Hospital course, mention meds given and ro paola, prescriptions, significant lab abnormalities, going to OR and other pertinent info. @ -Dr. Dang came down and saw the patient and decided to give the patient more time off work but stated it was okay to discharge patient home Undiagnosed new problem with uncertain prognosis? @ -No Drug Therapy requiring intensive monitoring for toxicity (Heparin, Nitro, Insulin, Cardizem)? @ -No Were any procedures done? @ -No Diagnosis/symptom? @ -Postsurgical abdominal pain Acute, or Chronic, or Acute on Chronic? @ -Acute Uncomplicated (without systemic symptoms) or Complicated (systemic symptoms)? @ -Complicated Side effects of treatment? @ -No Exacerbation, Progression, or Severe Exacerbation? @ -No Poses a threat to life or bodily function? How? (Chest pain, USA, MT, pneumonia, PE, COPD, DKA, ARF, appy, cholecystitis, CVA, Diverticulitis, Homicidal, Suicidal, threat to staff... and all critical care pts) @ -No - Lab Data Result diagrams: 03/31/23 12:28 03/31/23 12:28 Lab Results 03/31/23 03/31/23 03/31/23 Range/Units 12:28 12:28 12:28 WBC 6.7 (3.8-10.6) k/uL RBC 4.92 (4.30-5.90) m/uL Hgb 14.5 (13.0-17.5) gm/dL Hct 44.5 (39.0-53.0) % MCV 90.5 (80.0-100.0) fL MCH 29.5 (25.0-35.0) pg MCHC 32.6 (31.0-37.0) g/dL RDW 14.0 (11.5-15.5) % Plt Count 301 (150-450) k/uL MPV 6.4 Neutrophils % 63 % Lymphocytes % 27 % Monocytes % 6 % Eosinophils % 2 % Basophils % 0 % Neutrophils # 4.2 (1.3-7.7) k/uL Lymphocytes # 1.8 (1.0-4.8) k/uL Monocytes # 0.4 (0-1.0) k/uL Eosinophils # 0.2 (0-0.7) k/uL Basophils # 0.0 (0-0.2) k/uL Sodium 138 (137-145) mmol/L Potassium 4.2 (3.5-5.1) mmol/L Chloride 109 H (98-107) mmol/L Carbon Dioxide 21 L (22-30) mmol/L Anion Gap 8 mmol/L BUN 16 (9-20) mg/dL Creatinine 0.76 (0.66-1.25) mg/dL Est GFR (CKD-EPI)AfAm >90 (>60 ml/min/1.73 sqM) Est GFR (CKD-EPI)NonAf >90 (>60 ml/min/1.73 sqM) Glucose 90 (74-99) mg/dL Plasma Lactic Acid Armaan 0.9 (0.7-2.0) mmol/L Calcium 9.4 (8.4-10.2) mg/dL Total Bilirubin 0.9 (0.2-1.3) mg/dL AST 25 (17-59) U/L ALT 36 (4-49) U/L Alkaline Phosphatase 78 (38-126) U/L Total Protein 7.2 (6.3-8.2) g/dL Albumin 4.2 (3.5-5.0) g/dL Amylase 67 (30-110) U/L Lipase 73 (23-300) U/L Disposition Clinical Impression: Postoperative abdominal pain Disposition: HOME SELF-CARE Instructions (If sedation given, give patient instructions): Abdominal Pain (ED) Additional Instructions: Patient is to follow-up per Dr. Villegas's instructions Is patient prescribed a controlled substance at d/c from ED?: No Referrals: Michelle Lovell MD [STAFF PHYSICIAN] - 1-2 days Time of Disposition: 16:09
[2023-03-31 12:46] LABS: Basophils % (A) 0 %; Eosinophils # (A) 0.2 k/uL (0-0.7); Eosinophils % (A) 2 %; HCT 44.5 % (39.0-53.0); HGB 14.5 gm/dL (13.0-17.5); Lymphocytes # (A) 1.8 k/uL (1.0-4.8); Lymphocytes % (A) 27 %; MCH 29.5 pg (25.0-35.0); MCHC 32.6 g/dL (31.0-37.0); MCV 90.5 fL (80.0-100.0); Mean Platelet Volume 6.4; Monocytes # (A) 0.4 k/uL (0-1.0); Monocytes % (A) 6 %; Neutrophils # (A) 4.2 k/uL (1.3-7.7); Neutrophils % (A) 63 %; Platelet Count 301 k/uL (150-450); RBC 4.92 m/uL (4.30-5.90); WBC 6.7 k/uL (3.8-10.6)
[2023-03-31 13:51] LABS: ALT 36 U/L (4-49); AST 25 U/L (17-59); African American GFR (CKD) >90 (>60 ml/min/1.73 sqM); Albumin 4.2 g/dL (3.5-5.0); Alkaline Phosphatase 78 U/L (38-126); Amylase 67 U/L (30-110); Anion Gap 8 mmol/L; Blood Urea Nitrogen 16 mg/dL (9-20); Calcium 9.4 mg/dL (8.4-10.2); Carbon Dioxide 21 mmol/L (22-30); Chloride 109 mmol/L (98-107); Glucose 90 mg/dL (74-99); Lipase 73 U/L (23-300); Non-African American GFR(CKD) >90 (>60 ml/min/1.73 sqM); Potassium 4.2 mmol/L (3.5-5.1); Sodium 138 mmol/L (137-145); Total Bilirubin 0.9 mg/dL (0.2-1.3); Total Protein 7.2 g/dL (6.3-8.2)
--- NOTE | 2023-03-31 14:40 | CT ---
EXAMINATION TYPE: CT abdomen pelvis w con CT DLP: 1212.7 mGycm, Automated exposure control for dose reduction was used. DATE OF EXAM: 03/31/2023 2:12 PM COMPARISON: None. CLINICAL INDICATION:Male, 52 years old with history of abdominal pain; Recent cholecystectomy, pt c/o ongoing abdominal pain. TECHNIQUE: Axial CT of the abdomen and pelvis. Sagittal and coronal reformats were created on a [employer] workstation. Contrast used:100 ml mL of Isovue 300 with IV Contrast, (none if empty) Oral contrast used: without Oral Contrast (none if empty) FINDINGS: LOWER CHEST: Unremarkable ABDOMEN LIVER: Focal fatty infiltration on the gallbladder fossa. GALLBLADDER AND BILE DUCTS: The gallbladder is surgically absent. PANCREAS: Unremarkable. SPLEEN: Unremarkable. ADRENAL GLANDS: Unremarkable. KIDNEYS AND URETERS: No evidence of hydronephrosis or renal calculus. The ureters are unremarkable. PELVIS BLADDER: Unremarkable REPRODUCTIVE: Unremarkable. ABDOMEN & PELVIS STOMACH AND BOWEL: No evidence of bowel obstruction. The appendix is normal. Scattered colonic divert icula. PERITONEUM/RETROPERITONEUM: No evidence of pneumoperitoneum or free fluid. There is soft tissue adjac ent to the duodenum near the gallbladder fossa. Measuring 38Hounsfield units measuring 12 x 19 x 60 m m. VASCULATURE: No evidence of aortic aneurysm. MUSCULOSKELETAL: No acute osseous abnormalities LYMPH NODES: No gross evidence for lymphadenopathy. SOFT TISSUE/ABDOMINAL WALL: Unremarkable IMPRESSION: 1. Indeterminate soft tissue density near the duodenum which is not fluid density. Could represent p ostsurgical change. Consider short-term follow-up. Surgically absent gallbladder without evidence for remnant gallbladder. There is focal fatty infiltration of the gallbladder fossa. 2. Colonic diverticulosis. 3. Fat-containing bilateral inguinal hernias.
--- NOTE | 2023-03-31 15:55 | P.GSCN ---
History of Present Illness Consult date: 03/31/23 History of present illness: Patient seen and evaluated. CT of the abdomen and pelvis reviewed. Subtotal cholecystectomy several weeks ago. She reports new left upper quadrant incisional pain started 3 days ago. Patient has very labored a work. Recommend extended, more so April 24. Stable for discharge. Past Medical History Past Medical History: GERD/Reflux History of Any Multi-Drug Resistant Organisms: None Reported Past Surgical History: Cholecystectomy Past Psychological History: No Psychological Hx Reported Smoking Status: Never smoker Past Alcohol Use History: Occasional Past Drug Use History: Marijuana Medications and Allergies Home Medications Medication Instructions Recorded Confirmed Type Celecoxib [CeleBREX] 100 mg PO BID 03/15/23 03/31/23 History Esomeprazole Magnesium [NexIUM] 40 mg PO DAILY 03/15/23 03/31/23 History Acetaminophen Tab [Tylenol Tab] 1,000 mg PO Q6HR PRN #30 tablet 03/17/2303/31 Rx Simethicone [Gas-X] 125 mg PO AC-TID PRN #20 capsule 03/17/23 03/31/23 Rx Allergies Allergy/AdvReac Type Severity Reaction Status Date / Time No Known Allergies Allergy Verified 03/31/23 15:06 Surgical - Exam Vital Signs Temp Pulse Resp BP Pulse Ox 98.3 F 60 20 144/102 99 03/31/23 12:12 03/31/23 12:12 03/31/23 12:12 03/31/23 12:12 03/31/23 12:12 Results - Labs 03/31/23 12:28 03/31/23 12:28 Abnormal Lab Results - Last 24 Hours (Table) 03/31/23 Range/Units 12:28 Chloride 109 H (98-107) mmol/L Carbon Dioxide 21 L (22-30) mmol/L Diabetes panel 03/31/23 Range/Units 12:28 Sodium 138 (137-145) mmol/L Potassium 4.2 (3.5-5.1) mmol/L Chloride 109 H (98-107) mmol/L Carbon Dioxide 21 L (22-30) mmol/L BUN 16 (9-20) mg/dL Creatinine 0.76 (0.66-1.25) mg/dL Glucose 90 (74-99) mg/dL Calcium 9.4 (8.4-10.2) mg/dL AST 25 (17-59) U/L ALT 36 (4-49) U/L Alkaline Phosphatase 78 (38-126) U/L Total Protein 7.2 (6.3-8.2) g/dL Albumin 4.2 (3.5-5.0) g/dL Calcium panel 03/31/23 Range/Units 12:28 Calcium 9.4 (8.4-10.2) mg/dL Albumin 4.2 (3.5-5.0) g/dL Pituitary panel 03/31/23 Range/Units 12:28 Sodium 138 (137-145) mmol/L Potassium 4.2 (3.5-5.1) mmol/L Chloride 109 H (98-107) mmol/L Carbon Dioxide 21 L (22-30) mmol/L BUN 16 (9-20) mg/dL Creatinine 0.76 (0.66-1.25) mg/dL Glucose 90 (74-99) mg/dL Calcium 9.4 (8.4-10.2) mg/dL Adrenal panel 03/31/23 Range/Units 12:28 Sodium 138 (137-145) mmol/L Potassium 4.2 (3.5-5.1) mmol/L Chloride 109 H (98-107) mmol/L Carbon Dioxide 21 L (22-30) mmol/L BUN 16 (9-20) mg/dL Creatinine 0.76 (0.66-1.25) mg/dL Glucose 90 (74-99) mg/dL Calcium 9.4 (8.4-10.2) mg/dL Total Bilirubin 0.9 (0.2-1.3) mg/dL AST 25 (17-59) U/L ALT 36 (4-49) U/L Alkaline Phosphatase 78 (38-126) U/L Total Protein 7.2 (6.3-8.2) g/dL Albumin 4.2 (3.5-5.0) g/dL
--- NOTE | 2023-03-31 15:57 | P.PN ---
Progress Note - Text Progress Note Date: 03/31/23 To Whom It May Concern: Shiva Campbell is under my general surgical care. He underwent major abdominal surgery. Patient is unable to work during his time of convalescence. He may return to work without exertional restrictions 04/24/2023. Feel free to contact us if questions. Sincerely, Michelle Lovell MD, FACS
[2023-03-31 16:08] VITALS: BP 129/88; PULSE 61; RESP 18
== END 2023-03-31 16:48 | disposition home or self-care (01) ==
LOC: EC 12:02
DX: G89.18 Other acute postprocedural pain (principal); R10.11 Right upper quadrant pain; K21.9 Gastro-esophageal reflux disease without esophagitis; F12.90 Cannabis use, unspecified, uncomplicated; Z90.49 Acquired absence of other specified parts of digestive tract; Z79.899 Other long term (current) drug therapy
CPT/HCPCS: 99285; 36415; 80053; 82150; 83605; 83690; 85025; 74177; Q9967